=== PATIENT | female | born 1965 | race Two or more races ===

== ENCOUNTER 2019-01-28 01:05 | Emergency (ER) | payer OTHER ==
[~2019-01-28] VITALS: Ht 157.5 cm; Wt 72.6 kg
[2019-01-28 01:30] LABS: BASOPHILS % (AUTO) 0.5 % (0.0-2.0); HEMATOCRIT 33 % (33-45); LYMPHOCYTES # (AUTO) 1.4 /CMM (0.8-4.8); LYMPHOCYTES % (AUTO) 14.4 % (20.0-44.0); MEAN CORPUSCULAR HGB CONC 34 g/dl (31.0-36.0); MEAN CORPUSCULAR VOLUME 91 fL (82-100); MONOCYTES # (AUTO) 0.8 /CMM (0.1-1.30); MONOCYTES % (AUTO) 8.2 % (2.0-12.0); NEUTROPHILS # (AUTO) 7.4 /CMM (1.8-8.9); NEUTROPHILS % (AUTO) 74.9 % (43.0-81.0); PLATELET COUNT (AUTO) 339 /CMM (150-450); RED BLOOD CELL COUNT(AUTO) 3.58 MIL/uL (4.0-5.2); WHITE BLOOD COUNT (AUTO) 9.9 K/uL (4.3-11.0)
[2019-01-28 01:38] LABS: CALCIUM, SERUM 9.1 mg/dL (8.5-10.1); CARBON DIOXIDE 25 mmol/L (21-32); CHLORIDE 106 mmol/L (98-107); CREATININE 1.1 mg/dL (0.6-1.3); GLUCOSE 115 mg/dL (74-106); POTASSIUM 3.5 mmol/L (3.5-5.1); SODIUM SERUM 142 mmol/L (136-145); UREA NITROGEN, BLOOD 12 mg/dL (7-18)
[2019-01-28 01:44] LABS: ALANINE AMINOTRANSFERASE 52 U/L (12-78); ALBUMIN 3.5 g/dL (3.4-5.0); ALCOHOL, BLOOD < 3 mg/dL (0-0); ALKALINE PHOSPHATASE 73 U/L (46-116); ASPARTATE AMINOTRANSFERASE 42 U/L (15-37); BILIRUBIN,DIRECT 0.1 mg/dL (0.0-0.2); BILIRUBIN,TOTAL 0.3 mg/dL (0.2-1.0); SALICYLATE 1.4 mg/dL (2.8-20.0); TOTAL PROTEIN, SERUM 7.5 g/dL (6.4-8.2)
[2019-01-28 01:45] LABS: ACETAMINOPHEN 0 ug/ml (10-30)
[2019-01-28] MEDS ORDERED: LORAZEPAM INJ 2 MG/ML VIAL ONE (01:59)
[2019-01-28] MEDS ORDERED: LORAZEPAM INJ 2 MG/ML VIAL IM ONE (02:00)
[2019-01-28] MEDS ORDERED: OLANZAPINE 10 MG VIAL IM ONE ×2 (02:14→02:30)
[2019-01-28 06:47] LABS: APPEARANCE,URINE CLEAR (CLEAR); BILIRUBIN,URINE NEGATIVE (NEGATIVE); BLOOD, URINE TRACE Ery/uL (NEGATIVE); COLOR,URINE YELLOW (YELLOW); KETONES,URINE NEGATIVE (NEGATIVE); LEUKOCYTE ESTERASE ,URINE NEGATIVE (NEGATIVE); NITRITE, URINE NEGATIVE (NEGATIVE); PROTEIN,URINE NEGATIVE (NEGATIVE); UGLUCOSE NEGATIVE (NEGATIVE); UROBILINOGEN,URINE 0.2 EU/dL (0.2)
[2019-01-28 07:07] LABS: BACTERIA,URINE None seen /HPF (None Seen); RBC,URINE 0-2 /HPF (0-2); SQUAMOUS EPITHELIAL CELL,UR Rare /HPF (None Seen)
[2019-01-28] MEDS ORDERED: OLANZAPINE 5 MG TABLET ONE ×2 (16:54→19:47)
[2019-01-28] MEDS ORDERED: OLANZAPINE 5 MG TABLET PO ONE ×2 (17:00→19:00)
[2019-01-28] MEDS ORDERED: LORAZEPAM 1 MG TABLET ONE ×2 (17:15→19:47)
[2019-01-28] MEDS ORDERED: LORAZEPAM 1 MG TABLET PO ONE ×2 (17:30→19:00)
[2019-01-28] MEDS ORDERED: ACETAMINOPHEN ES 500 MG TABLET ONE (23:53)
[2019-01-29] MEDS ORDERED: ACETAMINOPHEN 325 MG TABLET PO ONE
[2019-01-29 00:01] VITALS: BP 110/86
== END 2019-01-29 00:03 | disposition short-term general hospital (02) ==
LOC: ER 01:07 → EDBD 01:07 → ER 01-29 00:03
DX: F99 Mental disorder, not otherwise specified (principal); J45.909 Unspecified asthma, uncomplicated
CPT/HCPCS: 36415; 80048; 80076; 80305; 80307; 80329; 81001; 84703; 85025; 96372 ×2; 99285; G0480; J2060; J3490; 81000-TC

== ENCOUNTER 2019-05-11 14:50 | Emergency (ER) | payer OTHER ==
[~2019-05-11] VITALS: Ht 172.7 cm; Wt 94.3 kg
--- NOTE | 2019-05-11 15:10 | NUR ---
PATIENT C/O BODY PAIN. PATIENT A/OX4, AMBULATORY, NO DISTRESS NOTED, BREATHING EVEN AND UNLABORED, NO SOB NOTED.
[2019-05-11] MEDS ORDERED: HYDROCODONE/APAP 10/325MG 1 EA TABLET ONE (15:47)
[2019-05-11] MEDS ORDERED: HYDROCODONE/APAP 10/325MG 1 EA TABLET PO ONE (16:00)
[2019-05-11 16:45] VITALS: BP 146/60
--- NOTE | 2019-05-11 16:45 | NUR ---
Patient discharged to home in stable condition. Written and verbal after care instructions given. Patient verbalizes understanding of instruction.
== END 2019-05-11 16:45 | disposition home or self-care (01) ==
LOC: ER 14:58
DX: S60.222A Contusion of left hand, initial encounter (principal); J45.909 Unspecified asthma, uncomplicated; X58.XXXA Exposure to other specified factors, initial encounter; Y93.89 Activity, other specified; Y92.89 Other specified places as the place of occurrence of the external cause; Y99.8 Other external cause status
CPT/HCPCS: 73130-TC